=== PATIENT | female | born 1995 | race Caucasian/White ===

== ENCOUNTER 2018-04-11 08:08 | Emergency (ER) | payer OTHER ==
[~2018-04-11] VITALS: Ht 149.9 cm; Wt 44.5 kg
--- NOTE | 2018-04-11 08:17 | NUR ---
Sasha worley in [facility] - 04/11/18 at 0820 by [employer] light technician at bedside for exam.
--- NOTE | 2018-04-11 08:21 | NUR ---
patient presented to the ER [id number] and [facility], from lock up unit, c/o involuntary muscle spasm 20mins [employer] CCLC. on room air, breathing evenly and unlabored. connected to the monitor, and pilse ox. kept comfortable. will continue to monitor accordingly.
[2018-04-11] MEDS ORDERED: LORAZEPAM 1 MG TABLET ONE (08:59)
[2018-04-11] MEDS ORDERED: LORAZEPAM 1 MG TABLET PO ONE (09:00)
[2018-04-11 09:14] VITALS: BP 99/60
--- NOTE | 2018-04-11 09:16 | NUR ---
Patient discharged to home in stable condition. Written and verbal after care instructions given. Patient verbalizes understanding of instruction.
== END 2018-04-11 09:15 ==
LOC: ER 08:13
DX: M62.838 Other muscle spasm (principal)
CPT/HCPCS: 99283; A4606